=== PATIENT | male | born 1980 | race Caucasian/White ===

== ENCOUNTER 2016-07-14 21:50 | Emergency (ER) | payer BC ==
--- NOTE | ~2016-07-14 | CR63 ---
[facility] A Service of [facility] RADIOLOGY TEXT RESULTS PATIENT: KEHINDE NIETO LOCATION: SED : 80 UNIT #: [id number] AGE: [address]: Miguelito Rubio MD SEX: M ORDER DR: [id number] [address] [address] [id number] E MR#: [id number] Acc #: [id number] NAME: KEHINDE NIETO : 1980 SEX: M STUDY DATE/TIME: 07/14/2016 21:38 UNIT: SED ROOM: STUDY DESCRIPTION: CR Chest 2 View Attending Physician: Miguelito Rubio M.D. Ordering Physician: Miguelito Rubio M.D. Primary Care Physician: No Primary Care Physician MEDICAL IMAGING REPORT This report is preliminary unless electronic signature is present. EXAM Two-view chest 07/14/2016 INDICATIONS Cough, congestion and fever for a week. Tobacco abuse. TECHNIQUE Two-view chest was performed. No comparisons. FINDINGS The cardiac silhouette is within normal limits. Vascularity is normal. There is no dense consolidation, effusion or pneumothorax. There is some probable atelectasis or less likely faint infiltrate in the left lung base. IMPRESSION Probable atelectasis or less likely faint infiltrate at the left lung base. No effusion pneumothorax or dense consolidation. We have no comparisons for this patient in our system. Dictated by... Jimmy Benton M.D. THIS IS AN ELECTRONICALLY VERIFIED REPORT Jimmy Benton M.D. at 07/15/2016 11:42 AM Patricia TD: 07/15/2016 00:43 JOB #: [id number] MEDICAL IMAGING REPORT [facility] A Service [facility] RADIOLOGY TEXT RESULTS PATIENT: KEHINDE NIETO LOCATION: SED : 80 UNIT #: [id number] AGE: [address]: Miguelito Rubio MD SEX: M ORDER DR: Page 1 of 1
[~2016-07-14 21:50] MED LIST: NO MEDICATIONS
== END 2016-07-14 22:43 | disposition home or self-care (01) ==
LOC: SED 21:50
DX: J20.9 Acute bronchitis, unspecified (principal); H66.92 Otitis media, unspecified, left ear; J32.9 Chronic sinusitis, unspecified; F17.210 Nicotine dependence, cigarettes, uncomplicated
CPT/HCPCS: 71020; 99283